=== PATIENT | male | born 1975 | race African-American/Black ===

== ENCOUNTER → 2017-08-30 | Emergency (ER) | payer OTHER ==
[~2017-08-30] VITALS: Ht 177.8 cm; Wt 93.0 kg
[~2017-08-30] MED LIST: RAMIPRIL5 MG
== END | disposition home or self-care (01) ==
LOC: ER 14:11
DX: R06.02 Shortness of breath (principal)

== ENCOUNTER 2018-06-11 07:11 | Outpatient (CLI) | payer OTHER | END 2018-06-11 07:33 | disposition home or self-care (01) | LOC: RAD 07:11 → MAMO-SONO 07:15 → RAD 07:33 | DX: E04.1 Nontoxic single thyroid nodule (principal); R13.19 Other dysphagia; N13.2 Hydronephrosis with renal and ureteral calculous obstruction; N13.39 Other hydronephrosis ==

== ENCOUNTER 2024-08-22 23:20 | Emergency (ER) | payer OTHER ==
[~2024-08-22] VITALS: Ht 177.8 cm; Wt 93.9 kg
[2024-08-23] MEDS ORDERED: GLUMETZA500 MG PO (00:13)
[2024-08-23] MEDS ORDERED: ZESTRIL30 MG PO (00:13)
[2024-08-23 02:56] LABS: HEMATOCRIT 43.6 % (39.0-48.0); HEMOGLOBIN 15.2 g/dL (13-16.00); MEAN CELL VOLUME 88.1 fL (80.0-100.00); MEAN CORPUSCULAR HEMOGLOBIN 30.7 pg (27.00-32.0); MEAN CORPUSCULAR HGB CONC 34.9 g/dl (32.0-36.0); PLATELET COUNT 271 K/uL (150-450); RED BLOOD COUNT 4.95 M/uL (4.00-6.00); RED CELL DISTRIBUTION WIDTH 13.4 % (11.5-14.5)
[2024-08-23 03:32] LABS: INR 1.02; PARTIAL THROMBOPLASTIN TIME 25.6 SECONDS (22.0-34.0); PROTHROMBIN TIME 11.1 SECONDS (9.0-11.5)
[2024-08-23 03:40] LABS: ALBUMIN 4.1 gm/dL (3.4-5.0); BILIRUBIN TOTAL 0.52 mg/dL (0.3-1.2); CALCIUM 9.2 mg/dL (8.5-10.1); CREATININE SERUM 1.11 mg/dL (0.70-1.30); GFR 71.01; GLOBULINA 3.9 G/DL (2.4-3.5); POTASSIUM 4.35 mEq/L (3.5-5.1)
== END 2024-08-23 04:22 | disposition home or self-care (01) ==
LOC: ER 23:23
DX: S00.83XA Contusion of other part of head, initial encounter (principal); W18.39XA Other fall on same level, initial encounter; Y93.89 Activity, other specified; Y92.013 Bedroom of single-family (private) house as the place of occurrence of the external cause; I10 Essential (primary) hypertension; E11.9 Type 2 diabetes mellitus without complications; Z79.84 Long term (current) use of oral hypoglycemic drugs; S29.8XXA Other specified injuries of thorax, initial encounter

== ENCOUNTER 2024-10-08 20:07 | Emergency (ER) | payer OTHER ==
[~2024-10-08] VITALS: Ht 177.8 cm; Wt 91.6 kg
[~2024-10-08 20:07] MED LIST changes: +GLUMETZA500 MG PO; +ZESTRIL30 MG PO
[2024-10-08] MEDS ORDERED: KETOROLAC TROMETHAMINE 60 MG VIAL IM ONE ×2 (21:00→21:13)
== END 2024-10-08 23:47 | disposition home or self-care (01) ==
LOC: ER 20:46
DX: G89.11 Acute pain due to trauma (principal); M25.572 Pain in left ankle and joints of left foot; I10 Essential (primary) hypertension; E11.9 Type 2 diabetes mellitus without complications; Z79.84 Long term (current) use of oral hypoglycemic drugs